=== PATIENT | male | born 1945 | race Caucasian/White ===

== ENCOUNTER → 2022-10-30 10:14 | Outpatient (BNVA) | payer OTHER, MEDICARE, SELFPAY | PROVIDERS: PCP Family Medicine; Visit Provider Emergency Medicine | DX: R06.02 Shortness of breath (principal); R60.9 Edema, unspecified; I10 Essential (primary) hypertension; J90 Pleural effusion, not elsewhere classified | CPT/HCPCS: 71046; 80053; 83880; 84443; 85025 ==